=== PATIENT | female | born 1985 | race Two or more races ===

== ENCOUNTER 2018-04-22 10:37 | Outpatient (CLI) | payer OTHER | END 2018-04-22 11:51 | disposition home or self-care (01) | LOC: NST 10:37 | DX: Z34.82 Encounter for supervision of other normal pregnancy, second trimester (principal) ==

== ENCOUNTER 2018-04-23 08:33 | Outpatient (CLI) | payer OTHER | END 2018-04-23 09:24 | disposition home or self-care (01) | LOC: NST 08:33 | DX: Z34.82 Encounter for supervision of other normal pregnancy, second trimester (principal) ==

== ENCOUNTER 2018-05-09 08:51 | Outpatient (CLI) | payer OTHER | END 2018-05-09 09:51 | disposition home or self-care (01) | LOC: NST 08:51 | DX: Z34.83 Encounter for supervision of other normal pregnancy, third trimester (principal) ==

== ENCOUNTER 2018-05-31 19:11 | Outpatient (CLI) | payer OTHER ==
[2018-05-31] MEDS ORDERED: PRENATAL TABLE1 EAC1 PO (21:09)
[2018-05-31] MEDS ORDERED: NIFE60TA3 PO (21:10)
[2018-05-31] MEDS ORDERED: IRON325 MG PO (21:10)
== END 2018-05-31 19:59 | disposition still patient (30) ==
LOC: NST 19:11
DX: Z34.83 Encounter for supervision of other normal pregnancy, third trimester (principal)

== ENCOUNTER 2018-05-31 19:56 | Inpatient (IN) | payer OTHER ==
[~2018-05-31] VITALS: Ht 157.5 cm; Wt 58.1 kg
[2018-05-31] MEDS ORDERED: PRENATAL TABLE1 EAC1 PO (21:09)
[2018-05-31] MEDS ORDERED: NIFE60TA3 PO (21:10)
[2018-05-31] MEDS ORDERED: IRON325 MG PO (21:10)
== END 2018-06-04 12:36 | disposition home or self-care (01) | DRG 831 ==
LOC: LDR 19:56
PROC: 4A033R1 Measurement of Arterial Saturation, Peripheral, Percutaneous Approach (ICD-10-PCS; principal; 2018-06-01)
PROC: BY4FZZZ Ultrasonography of Third Trimester, Single Fetus (ICD-10-PCS; 2018-06-01)
PROC: BW40ZZZ Ultrasonography of Abdomen (ICD-10-PCS; 2018-06-01)
PROC: 4A1HXCZ Monitoring of Products of Conception, Cardiac Rate, External Approach (ICD-10-PCS; 2018-06-01)
DX: O47.03 False labor before 37 completed weeks of gestation, third trimester (principal); J15.8 Pneumonia due to other specified bacteria; A02.8 Other specified salmonella infections

== ENCOUNTER 2021-05-21 14:58 | Outpatient (CLI) | payer OTHER ==
[~2021-05-21 14:58] MED LIST: IRON325 MG PO; NIFE60TA3 PO; PRENATAL TABLE1 EAC1 PO
== END 2021-05-21 15:28 | disposition home or self-care (01) ==
LOC: NST 14:58
PROVIDERS: ATTEND Obstetrics & Gynecology Maternal & Fetal Medicine
DX: Z34.83 Encounter for supervision of other normal pregnancy, third trimester (principal)